=== PATIENT | female | born 1980 | race Caucasian/White ===

== ENCOUNTER → 2018-08-08 | Emergency (ER) | payer OTHER ==
[~2018-08-08] VITALS: Ht 160 cm; Wt 57.6 kg
[~2018-08-08] MED LIST: PROMETHAZINE W118 ML PO; TESSALON PERLE100 M1 PO; ZITHROMAX500 MG PO
== END | disposition home or self-care (01) ==
LOC: ER 13:53
DX: R05 Cough (principal)

== ENCOUNTER 2018-08-25 17:33 | Emergency (ER) | payer OTHER ==
[~2018-08-25] VITALS: Ht 160 cm; Wt 57.6 kg
[2018-08-25] MEDS ORDERED: TESSALON PERLE100 M1 (17:47)
== END 2018-08-25 20:00 | disposition home or self-care (01) ==
LOC: ER 17:33
DX: B34.9 Viral infection, unspecified (principal); J11.1 Influenza due to unidentified influenza virus with other respiratory manifestations